=== PATIENT | male | born 1960 | race Caucasian/White ===

== ENCOUNTER 2021-01-01 10:18 | Outpatient (CLI) | payer MEDICARE, SELFPAY ==
--- NOTE | ~2021-01-01 | CT_ITS ---
EXAMINATION:CT diagnostic chest wo con DATE: 01/01/2021 10:37 INDICATION: Lung nodules. TECHNIQUE: Computed tomography (CT) of the chest was performed without intravenous contrast. Automate d exposure control and iterative reconstruction technique were employed. The dose-length product (DLP ) was 88.21 mGy-cm. COMPARISON: PET/CT 08/07/2018 FINDINGS: There is moderate emphysema. In superior segment right lower lobe, there is a 3.0 x 0.5 x 1 .5 cm mass, stable from 08/07/2018, likely scarring. Calcified bilateral lung nodules and calcified l eft hilar lymph nodes are consistent with old granulomatous disease. There is a stable 4 mm nodule in right middle lobe. There is a 2 mm nodule in right middle lobe. There is a 3 mm nodule in left upper lobe. No pleural effusion. The heart size is normal. There are coronary artery calcifications. No pe ricardial effusion. 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 Calcifications in the sp sarah are consistent with old granulomatous disease. There are epidural electrodes in thoracic spine. There is mild thoracic spondylosis. There is developmental anterior and posterior fusion at T3-T4. IMPRESSION: 1. Stable lung findings, likely benign. 2. Moderate emphysema. Reviewed, dictated and finalized at location B.
== END 2021-01-01 10:19 | disposition home or self-care (01) ==
PROVIDERS: PCP Family Medicine; Visit Provider Family Medicine
DX: R91.8 Other nonspecific abnormal finding of lung field (principal); J43.9 Emphysema, unspecified
CPT/HCPCS: 71250

== ENCOUNTER 2024-06-05 08:30 | Outpatient (CLI) | payer MEDICARE, SELFPAY ==
--- NOTE | ~2024-06-05 | XR_ITS ---
3 VIEWS THORACIC SPINE Ordering provider: Max Yusuf MD History: . RADICULOPATHY, CER LUMB AND THOR REGION . Comparison: None. FINDINGS: Spinal stimulator is seen with the tip in the midthoracic area. VERTEBRAL BODIES: Normal height and alignment. No visible fracture or subluxation. Degenerative ferro es of the spine. DISK SPACES: Narrowing at multiple levels in the lower thoracic area. SOFT TISSUES: Normal. IMPRESSION: No acute osseous abnormality of the thoracic spine. Multilevel degenerative disc disease. Reviewed, dictated and finalized at location A.
--- NOTE | ~2024-06-05 | XR_ITS ---
3 VIEWS LUMBAR SPINE Ordering provider: Max Yusuf MD History: . RADICULOPATHY, CER LUMB AND THOR REGION . Comparison: None. FINDINGS: VERTEBRAL BODIES:Mild levoscoliosis. No popliteal fracture or subluxation. Degenerative changes of s pine. Stimulator is seen in the right paraspinal area. DISK SPACES: Narrowing of the disc L1-2, and L2-3. Disc spacers seen at the level of L5-S1. Multileve l facet joint disease. SOFT TISSUES: Aortic calcifications. Bilateral sacroiliacs. IMPRESSION: No acute osseous abnormality lumbar spine. Multilevel degenerative and facet joint disease. Reviewed, dictated and finalized at location A.
--- NOTE | ~2024-06-05 | XR_ITS ---
XR cervical spine 4-5V Ordering provider: Max Yusuf MD History: . RADICULOPATHY, CER LUMB AND THOR REGION . Comparison: None. FINDINGS: VERTEBRAL BODIES: Normal height and alignment. No visible fracture or subluxation. The dens is intact . DISK SPACES: Narrowing of the disc C6-C7. Multilevel uncovertebral joint osteoarthritic lesions. Mult ilevel facet joint disease. PARASPINOUS SOFT TISSUES: No prevertebral soft tissue swelling. IMPRESSION: No acute osseous abnormality cervical spine. Degenerative disc disease at the level of C6-C7. Multilevel facet joint disease and uncovertebral joint degenerative changes. Reviewed, dictated and finalized at location A.
== END 2024-06-05 08:31 | disposition home or self-care (01) ==
PROVIDERS: PCP Family Medicine; Visit Provider Pain Medicine Interventional Pain Medicine
DX: M50.323 Other cervical disc degeneration at C6-C7 level (principal); M47.892 Other spondylosis, cervical region; M51.34 Other intervertebral disc degeneration, thoracic region; M51.36 Other intervertebral disc degeneration, lumbar region; M47.896 Other spondylosis, lumbar region; M47.897 Other spondylosis, lumbosacral region
CPT/HCPCS: 72050; 72072; 72100

== ENCOUNTER 2024-11-27 23:35 | Emergency (ER) | payer MEDICARE, SELFPAY ==
--- NOTE | ~2024-11-27 | CT_ITS ---
CT ANGIOGRAM NECK AND HEAD History: Dizziness, double vision. Technique: Serial spiral axial images through the head and neck were obtained during arterial phase I V injection of 100 cc of Omnipaque 350. 3-D postprocessing and MIP images were then reconstructed on the remote workstation. Dose reduction technique was used on this scan by utilizing automated exposur e control and iterative reconstruction technique. The dose-length product (DLP) was 1119.48 mGy-cm. CTA neck findings: Right vertebral artery appears to be patent, but diffusely hypoplastic. There is occlusion at the origin of the left vertebral artery. There is partial reconstitution of the mid cerv ical left vertebral artery. The distal left vertebral artery is also largely unopacified/occluded. Bi lateral common carotid, internal carotid, and external carotid arteries are patent. Calcified and soft plaque at the proximal right internal carotid artery results in moderate stenosis, probably 50% in degree. Possible intraluminal floating plaque at the proximal left internal carotid artery. Calcified plaque at the proximal left internal carotid artery is present, without significant stenosis. The proximal right internal carotid artery demonstrates 50% stenosis relative to the kaushal l distal artery lumen diameter. The proximal left internal carotid artery demonstrates 0% stenosis re lative to the normal distal artery lumen diameter. Incidental note made of high-grade stenosis at the proximal left subclavian artery, 90% in degree. Lung apices demonstrate moderate emphysema and probable mild chronic interstitial change. CTA head findings: Basilar artery and posterior sugars are patent. There are atherosclerotic calcific ations of the cavernous portions of the distal internal carotid arteries with areas of moderate to hi gh-grade stenosis. Middle cerebral arteries and anterior cerebral arteries are patent, without stenos is or occlusion. No aneurysm evident. Impression: Moderate stenosis (50%) at the proximal right internal carotid artery with possible floating plaque. 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 Hypoplastic right vertebral artery. Atherosclerotic calcification the cavernous portions of the distal internal carotid arteries with are as of moderate to high-grade stenosis. High-grade stenosis at the proximal left subclavian artery, as detailed above. Reviewed, dictated and finalized at location . Impression: Moderate stenosis (50%) at the proximal right internal carotid artery with poss ible floating plaque. 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 Hypoplastic right vertebral artery. Atherosclerotic calcification the cavernous portions of the distal internal car otid arteries with areas of moderate to high-grade stenosis. High-grade stenosis at the proximal left subclavian artery, as detailed above.
--- NOTE | ~2024-11-27 | XR_ITS ---
Portable chest x-ray Comparison: 10/01/2004 Clinical History: Dizziness Findings: Calcified left apical granuloma present. Lungs are otherwise clear, without focal consolida tion or pleural effusion. Cardiomediastinal silhouette is stable. Bones and soft tissues are unremar kable. Impression: No acute abnormality. Reviewed, dictated and finalized at [facility]. Impression: No acute abnormality.
--- NOTE | ~2024-11-27 | CT_ITS ---
History: CODE STROKE PROCEDURE: CT head without contrast. COMPARISON: None TECHNIQUE: Axial imaging of the head performed from the skull base to the vertex without IV contrast. Sagittal a nd coronal reformations obtained. DLP: 681 mGy-cm FINDINGS: The ventricles are normal in size, shape and position. There is no mass, mass effect or midline shift. There is no abnormal extra-axial fluid collection or intracranial hemorrhage. Visualized paranasal sinuses are clear. The mastoid air cells are well aerated. No acute displaced fractures within the overlying cranium. Impression: No acute intracranial hemorrhage or suspicious mass effect. These findings were given to Dr Arguelles at 11:57pm on 11/27/24 Reviewed, dictated and finalized at location A. Impression: No acute intracranial hemorrhage or suspicious mass effect. These findings were given to Dr Arguelles at 11:57pm on 11/27/24
--- OUTSIDE RECORDS SUMMARY | 2024-11-27 23:40 | XMS_ITS | Clinical Summary ---
Author Organization [facility] Address [address] [place] [address] Phone Care Team Providers Care Stabber Name Role Phone [facility], External Provider Primary Care Provider U navailable Allergies Active Allergy Reactions Criticality Noted Date Comments Codeine Nausea and Vomiting 05/01/2013 Medications rosuvastatin (CRESTOR) 20 mg tablet Take 20 mg by mouth daily at bedtime . Active FENOFIBRATE ORAL Take 160 mg by mouth daily . Active duloxetine HCl (CYMBALTA ORAL) Take by mouth daily. Active traMADol (ULTRAM) 50 mg tablet Take 1 Tablet (50 mg) by mouth every 6 hours as needed for Pain. 40 Tablet 07/06/2018 Active varenicline tartrate (CHANTIX ORAL) Take by mouth. Active oxyCODONE-acetam inophen (PERCOCET) 7.5-325 mg TabletIndication s:Erectile dysfunction, unspecified erectile dysfunction type Take 1 Tablet by mouth every 4 hours as needed for Pain, Moderate. Max Daily Amount: 6 Tablets 28 Tablet 05/10/2019 4:04 PM CDT 05/10/2019 Active amoxicillin-clav ulanate (AUGMENTIN) 875-125 mg tablet Take 1 Tablet by mouth every 12 hours. 10 Tablet 05/10/2019 4:04 PM CDT 05/10/2019 Active Active Problems Problem Noted Date Diagnosed Date Erectile dysfunction 03/19/2018 Erectile disorder due to medical condition in ma le patient 04/12/2017 Tobacco use 02/17/2017 Cigarette dependence 02/17/2017 Social History Tobacco Use Types Packs/Day Years Used Date Smoking Tobacco: Every Day Cigarettes 1 41 Started: 03/01/1977; Last attempted to quit: 03/01/2018 Smokeless Tobacco: Never Comments:using chantix Alcohol Use Standard Drinks/Week Comments Yes 0 (1 standard drink = 0.6 oz pur e alcohol) occassional Sex and Gender Information Value Date Recorded Sex Assigned at Not on file Legal Sex Male 4:[address] Gender Identity Not on file Sexual Orientation Not on file Last Filed Vital Signs Vital Sign Reading Time Taken Comments Blood Pressure 142/68 05/10/2019 4:02 PM CDT Pulse 62 05/10/2019 4:02 PM CDT Temperature 35.7 C (96.3 F) 05/10/2019 3:28 PM CDT Respiratory Rate 14 05/10/2019 4:02 PM CDT Oxygen Saturation 100% 05/10/2019 4:02 PM CDT Inhaled Oxygen Concentration - - Weight 66.2 kg (146 lb) 05/10/2019 10:21 AM CDT Height 167.6 cm (5' 6 ) 05/06/2019 12:28 PM CDT Body Mass Index 23.57 05/06/2019 12:28 PM CDT Plan of Treatment Health Maintenance Due Date Last Done Comments PNEUMOCOCCAL VACCINE 0-49 YEARS (1 of 2 - PCV) 969 COLORECTAL SCREENING 11/17/2007 Colorectal Cancer Screening 11/17/2007 FIT-DNA Q 3 years 11/17/2007 FIT/FOBT Q 1 year 11/17/2007 Flex Sig/CT Colonography Q 5 years 11/17/2007 ZOSTER VACCINE (1 of 2) 2012 RSV VACCINE (60+ or ) (1 - Risk 60-74 years 1-dose series) 2022 INFLUENZA VACCINE (#1) 2024 DTAP/TDAP/TD VACCINES (2 - Td or Tdap) 05/15/2028 Medical Devices Implanted Type Area Kennel Assistant Device Identifier Shelf Expiration Date Model / Serial / Lot Kit Assemly Penile Impl [id number] - [id number] Implanted:Qty: 1 on 02/22/2017 by Margot Wright MD at [facility] Other N/A: Scrotum COLOPLAST [id number] 10/27/2021 [id number] / / [id number] Kit Assemly Penile Impl [id number] - [id number] Implanted:Qty: 1 on 03/19/2018 by Abel Merida MD at [facility] Other N/A: Penis COLOPLAST UROLOGY CARE 12/03/2022 [id number] / / Description:Both Coloplast p enile components are processed on requisition [id number] Kit Assemly Penile Impl [id number] - [id number] Implanted:Qty: 1 on 07/06/2018 by Abel Merida MD at [facility] Other N/A: Groin COLOPLAST UROLOGY CARE 02/22/2023 [id number] / / [id number] Description:REQUISITION $ 82 [id number]. Kit Assemly Penile Impl [id number] - [id number] Implanted:Qty: 1 on 05/10/2019 by Abel Merida MD at [facility] Other N/A: Penis COLOPLAST UROLOGY CARE 12/21/2023 [id number] / / [id number] Touch Scrotal Zero Degree Angle Cylinder Set With Pump Implanted:Qty: 1 on 02/22/2017 by Margot Wright MD at [facility] Penile Bilateral: Penis COLOPLAST [id number] 12/28/2020 [id number] / / [id number] Description:All Coloplast pe nile components are processed on requisition,[id number]. [place] Titan [place] Leav 125cc [id number] - [id number] Implanted:Qty: 1 on 03/19/2018 by Abel Merida MD at [facility] Penile N/A: Penis COLOPLAST UROLOGY CARE 06/29/2022 [id number] / / [id number] Description:REQUISITION# [id number] Titan Touch Pump Implanted:Qty: 1 on 05/10/2019 by Abel Merida MD at [facility] Penile N/A: Penis COLOPLAST 09/28/2023 [id number] / / [id number] Description:REF: [id number] BOTH COLOPLAST COMPONETS ON REQUISITION # [id number] Heath Right Leg Spinal Stimulator Explanted Type Area Kennel Assistant Device Identifier Shelf Expiration Date Model / Serial / Lot [place] Titan [place] Leav 125cc [id number] - [id number] Implanted:Qty: 1 on 02/22/2017 by Margot Wright MD at [facility] Explanted:Qty: 1 on 03/19/2018 by Abel Merida MD at [facility] Penile N/A: Scrotum COLOPLAST [id number] 10/03/2021 [id number] / / [id number] Description:[place] remove d on left Penile Cylinder And Pump Explanted:Qty: 1 on 02/22/2017 by Margot Wright MD at [facility] N/A: Penis Ams Explanted:Qty: 1 on 03/19/2018 by Abel Merida MD at [facility] Right: Penis [employer] Description:unknown date of implantation or further information. [place] removed on right Insurance MEDICARE PART A AND B RX [employer] Medicare Part D Advance Directives For more information, please contact: [phone] * Full Code (Latest Code Status on File) Date Activated Date Inactivated Comments 05/10/2019 10:19 AM 05/10/2019 6:34 PM * Full Code Date Activated Date Inactivated Comments 07/06/2018 2:50 PM 07/06/2018 8:58 PM * Full Code Date Activated Date Inactivated Comments 07/06/2018 12:25 PM 07/06/2018 2:50 PM * Full Code Date Activated Date Inactivated Comments 03/19/2018 8:47 AM 03/19/2018 5:12 PM * Full Code Date Activated Date Inactivated Comments 04/12/2017 9:10 AM 04/12/2017 3:54 PM Care Teams Stabber Relationship Specialty Start Date End Date [facility], External Provider [address] [place] [address] PCP - General 02/16/17
--- OUTSIDE RECORDS SUMMARY | 2024-11-27 23:40 | XMS_ITS | Clinical Summary ---
Author Organization [facility] Address [address] [place] [address] Care Team Providers Care Salesperson Burial Needs Name Role Phone Unavailable Primary Care Provider Unavailabl e Source Comments [facility],non-owned Affiliates and Associated Physician Practices is amultiple site organization consisting of ambulatory clinics and hospital sitesin [place], [place], [place] and [place]. This disclosure is being madepursuant to the Care Everywhere program and may not contain all information available regarding this patient. Last updated 18.[facility] Allergies Active Allergy Reactions Criticality Noted Date Comments Codeine Elevated Blood Pressure 09/23/2009 Medications * Be aware that medications may not be up to date on this document. Alwaysverify current medications with the patient. Medication Sig Dispensed Refills Start Date End Date Status esomeprazole (NEXIUM) 40 MG capsule Take 40 mg by mouth daily before breakfast. Active rosuvastatin (CRESTOR) 10 MG tablet Take 10 mg by mouth daily. Active hydrocodone-acetaminop hen (VICODIN ES) 7.5-750 MG tablet Take 1 Tab by mouth every 4 hours as needed for Pain. Active fenofibrate (TRICOR) 145 MG tablet Take 145 mg by mouth daily. Active mirtazapine (REMERON) 15 MG tablet Take 1 Tab by mouth at bedtime. 30 0 01/07/2010 Active duloxetine (CYMBALTA) 30 MG capsule Take 1 Cap by mouth daily. 30 0 01/07/2010 Active Family History Medical History Relation Name Comments Depression Brother Heart Failure Father Depression Mother Heart Failure Paternal Grandmother Heart Failure Paternal Uncle Relation Name Status Comments Brother Father Mother Paternal Grandmother Paternal Uncle Social History Tobacco Use Types Packs/Day Years Used Date Smoking Tobacco: Every Day Cigarettes 1 30 Alcohol Use Standard Drinks/Week Comments Yes 10 (1 standard drink = 0.6 oz pu re alcohol) 1 TO 2 TIMES/ MONTH Sex and Gender Information Value Date Recorded Sex Assigned at Not on file Gender Identity Not on file Sexual Orientation Not on file Last Filed Vital Signs Vital Sign Reading Time Taken Comments Blood Pressure 138/100 01/07/2010 10:27 AM CDT Pulse 82 01/07/2010 10:27 AM CDT Temperature 36.9 C (98.5 F) 01/07/2010 10:27 AM CDT Respiratory Rate 20 01/07/2010 10:27 AM CDT Oxygen Saturation 99% 01/04/2010 10:56 AM CDT Inhaled Oxygen Concentration - - Weight 69.9 kg (154 lb) 01/07/2010 7:57 AM CDT Height 170.2 cm (5' 7 ) 01/04/2010 2:00 PM CDT Body Mass Index 24.12 01/04/2010 2:00 PM CDT Plan of Treatment Not on file Advance Directives * Full Code (Latest Code Status on File) Date Activated Date Inactivated Comments 01/04/2010 4:16 PM 01/08/2010 12:06 AM * Full Code Date Activated Date Inactivated Comments 01/04/2010 2:14 PM 01/04/2010 4:16 PM
--- OUTSIDE RECORDS SUMMARY | 2024-11-27 23:40 | XMS_ITS | Clinical Summary ---
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 Gender Identity Not on file Sexual Orientation Not on file Plan of Treatment Health Maintenance Due Date Last Done Comments Hepatitis C Virus (HCV) Screening 1960 TdaP Immunization 1960 Colonoscopy 11/17/2007 Colorectal Cancer Screening 11/17/2007 Cologuard 2012 Immunochemical Fecal Occult Blood 2012 Pneumococcal Immunization (5 0+ years) (1 of 1 - PCV) 2012 Zoster Immunization (1 of 2) 2012 PSA Discussion 2017 Influenza Immunization (#1) 2024 SARS-COV-2 Immunization ( - 2023-25 season) 2024 Respiratory Syncytial Virus (RSV) Immunization (Adult) (1 - 1-dose 75+ series) 2037 Hepatitis B Immunization Aged Out No longer eligible based on patient's age to complete this topic Meningococcal Immunization (ACWY) Aged Out No longer eligible based on patient's age to complete this topic Pneumococcal Immunization Combined Aged Out No longer eligible based on patient's age to complete this topic Rotavirus Immunization Aged Out No lo nger eligible based on patient's age to complete this topic Care Teams Logistics Program Manager Relationship Specialty Start Date End Date Provider, None [place] PCP - General 11/02/16
--- OUTSIDE RECORDS SUMMARY | 2024-11-27 23:40 | XMS_ITS | Data Portability ---
Author Organization [place] - [facility], Main Office Address [address] [place] [address] Assessment No assessment recorded. Plan of Treatment Reminders Order Date Submit Date Provider Last Modified By Organization Details Last Modified Time Details Appointments Any 2024 10:15A Katrin Mcnulty NP Not available Not available Not available Lab vitamin D, 25-hydrox y, total, serum [address] [place] [address] (Lab), [address] [place] [address], [address], 10/01/2024 08:25:33 lipid panel, serum [address] [place] [address] (Lab), [address] [place] [address], [address], 10/22/2024 08:17:23 hepatic function panel, serum [address] [place] [address] (Lab), [address] [place] [address] [address], [place], [address], 10/01/2024 08:25:33 CMP, serum or plasma [address] [place] [address] (Lab), [address] [place] [address] [address], [place], [address], 10/01/2024 08:25:33 PSA, serum or plasma [address] [place] [address] (Lab), [address] [place] [address] [address], [address], 10/01/2024 08:25:33 CBC w/ auto diff 2024 025 [email or web address] 77 [facility] (Lab), [address], [place], [address], 10/01/2024 08:25:33 HbA1c (hemoglob in A1c), blood 2024 025 [email or web address] 77 [facility] (Lab), [address], [place], [address], 10/01/2024 08:25:33 drug screen, urine 2023 024 [facility], [address], [address], [place], [address], 02/17/2024 18:18:11 PSA, total, serum or plasma 2022 023 77 [facility] (Lab), [address], [place], [address], 05/31/2023 08:31:51 lipid panel, serum 2022 023 [email or web address] [id number] Not available 09/12/2023 09:16:36 Referral gastroent erologist referral - Please call patient to schedule an appointme nt. Thank you. 2024 025 [email or web address] Pat Cobb MD, [address], [address], [place], [address], 10/21/2024 09:02:44 dermatolo gist referral - Please call patient to schedule an appointme nt. Thank you. 2023 024 [email or web address] Cailin Cornejo MD (Dermatology) , [address], [address], [place], [address], 07/04/2024 10:26:09 pain managemen t referral - Please call patient to schedule an appointme nt. Thank you. 2023 024 [email or web address] Max Yusuf, [address] [facility] [address] , [address], [place], [address], 03/25/2024 08:46:56 gastroent erologist referral - Please call patient to schedule an appointme nt. Thank you. 2023 024 [email or web address] Pat Cobb MD, [address], [address], [place], [address], 01/08/2024 08:57:28 Procedures None recorded. Surgeries None recorded. Imaging None recorded. Medication Orders rosuvasta tin 10 mg tablet 2024 025 [id number], [address], [place], [address], 09/23/2024 12:20:43 fluoxetin e 40 mg capsule 2024 025 [id number], [address], [place], [address], 09/23/2024 12:20:41 Rexulti 2 mg tablet 2024 025 [id number], [address], [place], [address], 09/23/2024 12:20:42 triamcino lone acetonide 0.1 % topical cream 2023 024 [facility]/Pharmacy #[id number], [address], [place], [address], 09/23/2024 12:08:33 oxycodone -acetamin ophen 10 mg-325 mg tablet 2023 024 [facility]/Pharmacy #[id number], [address], [place], [address], 09/23/2024 12:08:14 pantopraz ole 40 mg tablet,de layed release 2023 024 [email or web address] [facility]/Pharmacy #[id number], [address], [place], [address], 09/23/2024 12:08:19 Patient TargetsNo targets recorded. Patient Instructions Encounter Date Encounter Id Patient Instructions Last Modified By Organization Details Last Modified Time 02/13/2024 [id number] Personalized Hea lth Plan and Screening Recommendations [email or web address] Not available 02/13/2024 11:44:27 09/23/2024 [id number] dementia rating scale-2* MAUREEN Not available 09/23/2024 12:28:12 care plan* MAUREEN Not available 09/23 12:28:07 multi-dimensiona l health assessment questionnaire* MAUREEN Not available 09/23/2024 12:27:59 advance directiv es: care instructions [email or web address] Not available 09/23/2024 12:20:35 [place] Advance Directives [email or web address] Not available 09/23/2024 12:20:34 advance care planning: care instructions [email or web address] Not available 09/23/2024 12:20:34 Personalized Hea lth Plan and Screening Recommendations Advance Directives - Do you have one? Advance Directives - Do we have your advance directive on file in your health record? Primary Prevention/Interven tion (prevents or decreases the chance of common diseases from occurring) Smoking Risk: Alcohol Misuse Screening: Weight: Physical activity: Nutrition: Fall Risk (screened today): Vaccines Pneumococcal: Influenza: Chronic Disease Risks Stroke: I have no recommendations Active diagnosis, Continue current treatment plan Heart Attack: I have no recommendations Act radha diagnosis, Continue current treatment plan Clogging of the Arteries: I have no recommendations Act radha diagnosis, Continue current treatment plan Diabetes: Active diagnosis, Continue current treatment plan Secondary Prevention/Interven tion (detects treatable diseases before they may cause symptoms, disability, or ) Prostate Cancer Screening: Colon Cancer Screening: Date Screening Last Performed: Eye Disease Screening: Dementia Risk: Depression Screening: Active diagnosis, Continue current treatment plan [email or web address] Not available 09/23/2024 12:05:39 Reason for Referral After School Program Assistant Referral for Gracia's esophagus Please call patient to schedule an appointment. Thank you. Referring Physician: Shanae Jung, Family Medicine, Encounter Date: 12/11/2023 Pain Management Referral for Degeneration of lumbar intervertebral disc lumbar pain, pain medication management Please call patient to schedule an appointment. Thank you. Referring Physician: Yaya Woodall [facility], Encounter Date: 02/13/2024 Laser Engineer Referral for H yperpigmentation of skin lesion noted to left LFA, rule out melanoma Please call patient to schedule an appointment. Thank you. Referring Physician: Yaya Woodall [facility], Encounter Date: 06/06/2024 After School Program Assistant Referral for Screening for malignant neoplasm of colon Please call patient to schedule an appointment. Thank you. Referring Physician: Urszula Mcnulty [facility], Encounter Date: 09/23/2024 Results Created Date Observation Date Name Description Value Unit Range Abnormal Flag Note LastModifiedBy Organization Detail LastModifiedTime 02/17/20 24 02/17/2024 DRUG MONIT OR, PANEL 3, W/CON F, URINE amphetamines NEGATI VE NG/mL <500 Not Available [place] [address] [place], [address], 02/17/2024 18:18:11 02/17/20 24 02/17/2024 DRUG MONIT OR, PANEL 3, W/CON F, URINE benzodiazepi sundar NEGATI VE NG/mL <100 Not Available [address] [address] [place], [address], 02/17/2024 18:18:11 02/17/20 24 02/17/2024 DRUG MONIT OR, PANEL 3, W/CON F, URINE cocaine metabolite NEGATI VE NG/mL <150 Not Available [facility] [address] [place] [address] [place], [address], 02/17/2024 18:18:11 02/17/20 24 02/17/2024 DRUG MONIT OR, PANEL 3, W/CON F, URINE marijuana metabolite POSITI VE NG/mL <20 abnormal Not Available [facility] [address] [place] [address] [place], [address], 02/17/2024 18:18:11 02/17/20 24 02/17/2024 DRUG MONIT OR, PANEL 3, W/CON F, URINE marijuana metabolite 3165 NG/mL <5 high Not Available [address], [address], 02/17/2024 18:18:11 02/17/20 24 02/17/2024 DRUG MONIT OR, PANEL 3, W/CON F, URINE marijuana comments See Duane andrews Notes , LDT Notes Not Available [address] [address] [address] , [place], [address], 02/17/2024 18:18:11 02/17/20 24 02/17/2024 DRUG MONIT OR, PANEL 3, W/CON F, URINE opiates NEGATI VE NG/mL <100 Not Available [address], [address], 02/17/2024 18:18:11 02/17/20 24 02/17/2024 DRUG MONIT OR, PANEL 3, W/CON F, URINE oxycodone NEGATI VE NG/mL <100 Not Available [address], [address], 02/17/2024 18:18:11 02/17/20 24 02/17/2024 DRUG MONIT OR, PANEL 3, W/CON F, URINE creatinine 75.7 mg/dL > or = 20.0 Not Available [address] [address] [place], [address], 02/17/2024 18:18:11 02/17/20 24 02/17/2024 DRUG MONIT OR, PANEL 3, W/CON F, URINE pH 7.3 4.5-9. 0 Not Available [address] [address] [place], [address], 02/17/2024 18:18:11 02/17/20 24 02/17/2024 DRUG MONIT OR, PANEL 3, W/CON F, URINE oxidant NEGATI VE mcg/m L <200 Not Available [facility] [address] [address] [address], [place], [address], 02/17/2024 18:18:11 02/17/2002/17/2024 DRUG MONIT ORING TEMPL ATE notes and comments This drug testi ng is for medic al treat ment only. Audra sis was perfo rmed as non-f orens ic testi ng and these resul ts shoul d be used only by [facility] provi ders to rende r diagn osis or treat ment, or to monit or progr ess of medic al condi tions . Marij uana Notes : Marij uana Metab olite detec chris is consi stent with expos ure to Marij uana (THC) and/o r hemp deriv ed produ cts. Some juris dicti ons do not inclu de hemp withi n the defin ition of Marij uana. LDT Notes : Confi rmati on tests were devel oped and their audra tical perfo rmanc e miladys cteri stics have been deter mined by [facility]. It has not been clear ed or appro wang by the FDA. This assay has been valid ated pursu ant to the CLIA regul ation s and is used for clini carlee purpo ses. [facility] Provi ders needi ng Inter preta tion tanya tance , pleas e conta ct us at 1.877 .40.R XTOX (1.87 7.407 .9869 ) M-F, 8am to 10pm EST Not Available [facility] [address] [address] [address], [place], [address], 02/17/2024 18:18:13 02/17/2002/17/2024 DRUG MONIT OR, PANEL 3, W/CON F, URINE amphetamines NEGATI VE NG/mL <500 Not Available [facility] [address] [address], [place], [address], 02/17/2024 18:19:14 02/17/2002/17/2024 DRUG MONIT OR, PANEL 3, W/CON F, URINE benzodiazepi sundar NEGATI VE NG/mL <100 Not Available [address] [address] [place], [address], 02/17/2024 18:19:14 02/17/20 24 02/17/2024 DRUG MONIT OR, PANEL 3, W/CON F, URINE cocaine metabolite NEGATI VE NG/mL <150 Not Available [address] [address] [place], [address], 02/17/2024 18:19:14 02/17/20 24 02/17/2024 DRUG MONIT OR, PANEL 3, W/CON F, URINE marijuana metabolite POSITI VE NG/mL <20 abnormal Not Available [address] [address] [place], [address], 02/17/2024 18:19:14 02/17/20 24 02/17/2024 DRUG MONIT OR, PANEL 3, W/CON F, URINE marijuana metabolite 3165 NG/mL <5 high Not Available [address], [address], 02/17/2024 18:19:14 02/17/20 24 02/17/2024 DRUG MONIT OR, PANEL 3, W/CON F, URINE marijuana comments See Duane andrews Notes , LDT Notes Not Available [address] [address] [place], [address], 02/17/2024 18:19:14 02/17/20 24 02/17/2024 DRUG MONIT OR, PANEL 3, W/CON F, URINE opiates NEGATI VE NG/mL <100 Not Available [address] [address] [place], [address], 02/17/2024 18:19:14 02/17/20 24 02/17/2024 DRUG MONIT OR, PANEL 3, W/CON F, URINE oxycodone NEGATI VE NG/mL <100 Not Available [address] [address] [place], [address], 02/17/2024 18:19:14 02/17/20 24 02/17/2024 DRUG MONIT OR, PANEL 3, W/CON F, URINE creatinine 75.7 mg/dL > or = 20.0 Not Available [address] [address] [place], [address], 02/17/2024 18:19:14 02/17/20 24 02/17/2024 DRUG MONIT OR, PANEL 3, W/CON F, URINE pH 7.3 4.5-9. 0 Not Available [address] [address] [place], [address], 02/17/2024 18:19:14 02/17/20 24 02/17/2024 DRUG MONIT OR, PANEL 3, W/CON F, URINE oxidant NEGATI VE mcg/m L <200 Not Available [address] [address] [place], [address], 02/17/2024 18:19:14 06/05/20 24 06/05/2024 XR, cervi carlee spine , 4 or 5 view No observ ation record ed. [address] [facility], [place], [address], 06/12/2024 13:21:02 06/05/20 24 06/05/2024 XR, thora cic spine No observ ation record ed. [address], [place], [address], 06/12/2024 13:20:33 06/05/20 24 06/05/2024 XR, lumbo sacra l spine , 2 or 3 view No observ ation record ed. [address], [place], [address], 06/12/2024 13:20:02 Result Notes None recorded. Problems Name Problem SNOMED Code Status Onset Date Resolution Date Notes Provider Name and Address Organization Details Recorded Time Hyperchol esterolem ia 61125833 Active 2016 Not Available [facility] 3 16:15:59 Postopera tive visit 519384224 Active 2017 Not Available [facility] 3 16:15:59 Insomnia 188593159 Active Not Available [facility] 3 16:15:59 [place] - lesion 285611480 Active Not Available [facility] 3 16:15:59 Gastroeso phageal reflux disease 252188152 Active Not Available [facility] 3 16:15:59 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 Not Available [facility] 3 16:15:59 Ankle pain 073190683 Active Not Available [facility] 3 16:15:59 Pain in right lower limb 844831181 Active Not Available [facility] 3 16:15:59 Gracia's esophagus 392104600 Active EGD done 10/30 Not Available [facility] 3 16:15:59 Bronchiti s 44508611 Active Not Available [facility] 3 16:15:59 Vitamin D deficienc y 20892806 Active Not Available [facility] 3 16:15:59 Depressiv e disorder 80179180 Active Not Available [facility] 3 16:15:59 Chronic pain syndrome 030538984 Active Not Available [facility] 3 16:15:59 Hypertens radha disorder 33069929 Active Not Available [facility] 3 16:15:59 Prostate specific antigen above reference range 717787183 Active 2020 Not Available [facility] 3 16:16:00 Transitio nal cell carcinoma of kidney 032277885 Active Not Available [facility] 3 16:16:00 Bunion 126672063 Active Not Available [facility] 3 16:16:00 Solitary nodule of lung 065842433 Active Not Available [facility] 3 16:16:00 Cough 03706859 Active Not Available [facility] 3 16:16:00 Hoarse 36285636 Active Not Available [facility] 3 16:16:00 Hyperlipi demia 00329466 Active Not Available [facility] 3 16:16:00 Nicotine dependenc e 79435821 Active Not Available [facility] 3 16:16:00 Hypercalc emia 93737278 Active Not Available [facility] 3 16:16:00 Renal cell carcinoma 404427378 Active 2016 removed kind 03/15 Not Available [facility] 3 16:16:00 Smoker 22324244 Active Not Available [facility] 3 16:16:00 Hyperglyc emia 11685892 Active 2018 Not Available [facility] 3 16:16:01 Liver cyst 28377814 Active 2017 Not Available [facility] 3 16:16:01 Pulmonary emphysema 20139084 Active 2017 Not Available [facility] 3 16:16:01 Reactive airway disease 421859540847 Active Not Available [facility] 3 16:16:01 Degenerat ion of lumbar intervert ebral disc 40055047 Active 2022 Shanae Jung MD [address] [facility] [address], [place], [address] , [email or web address] 3 13:41:38 Hyperpigm entation of skin 91410254 Active 2023 GER Sahu [address] [facility] [address], [facility] [address], [place], [address] , [email or web address] 4 15:29:17 Problem Notes None recorded. Procedures Surgical History Date Name Laterality Status Provider Name and Address Organization Details Recorded Time 5 Medicare Wellness CPT Code, Initial completed Marty Cope RN [facility] 09/23/2024 12:05:40 Imaging Results Imaging Date Name Status LastModified by Organiz [facility] Details LastModified Time 06/05/2024 XR, cervical spine, 4 or 5 view completed [address], [place], [address], 06/12/2024 13:21:02 06/05/2024 XR, thoracic spine completed [address], [place], [address], 06/12/2024 13:20:33 06/05/2024 XR, lumbosacral spine, 2 or 3 view completed [place] [id number] [facility] [address], [place], [address], 06/12/2024 13:20:02 Procedure Notes None recorded. Medical Equipment None Reported. Allergies Allergen ID Allergen Name Allergen Category Reaction Reaction Severity Criticality Documentation Date Start Date Code Code System Note Provider Name and Address Organization Details Recorded Time 24334 tramadol medicatio n nausea severe Not available 11/09/2022 89253 RxNorm Not Available [facility] 3 16:18:15 [address]4024 codeine medicatio n Not available Not available Not available 11/09/2022 2670 RxNorm Not Available [facility] 3 16:18:15 Medications Name Sig Start Date Stop Date Status Note LastModified by Organization Details LastModified Time fluoxetin e 40 mg capsule 2 po qday 2024 active Not Available Not Available Not Avai lable cyclobenz aprine 10 mg tablet 09/23 completed Not Available Not Available Not Available amoxicill in 500 mg capsule 11/26 completed Not Available Not Available Not Available terbinafi ne HCl 1 % topical cream apply to both feet twice daily 10/27 completed Not Available Not Available Not Available bupropion HCl SR 150 mg tablet,12 hr sustained -release 1 po qAM active Not Available Not Available No t Available venlafaxi ne ER 75 mg capsule,e xtended release 24 hr TK ONE C PO QD WITH 150 MG DOSAGE active Not Available Not Available No t Available pravastat in 40 mg tablet Take 1 tablet every day by oral route. active Not Available Not Available No t Available hydrocodo ne 5 mg-acetam inophen 325 mg tablet TAKE 1 TABLET EVERY 8 HOURS BY MOUTH NEEDED FOR 7 DAYS 02/26 completed Not Available Not Available Not Available ondansetr on HCl 8 mg tablet Take 1 tablet 3 times a day by oral route. active Not Available Not Available No t Available meloxicam 15 mg tablet active Not Available Not Available Not Available sucralfat e 1 gram tablet Take 1 tablet twice a day by oral route for 30 days. active Not Available Not Available No t Available ondansetr on HCl 4 mg tablet active Not Available Not Available No t Available prednison e 20 mg tablet 3 po qday x 3 days then 2 po qday x 3 days then 1 po qday x 3 days then 1/2 po qday x 3 days then stop active Not Available Not Available No t Available venlafaxi ne ER 150 mg capsule,e xtended release 24 hr TK ONE C PO QD WITH 75 MG C active Not Available Not Available No t Available metronida zole 500 mg tablet 04/17 completed Not Available Not Available Not Available acetamino phen 300 mg-codein e 30 mg tablet 12/16 completed Not Available Not Available Not Available hydrocodo ne 10 mg-acetam inophen 325 mg tablet Take 1 tablet every 6 hours by oral route as needed. 09/12 completed Not Available Not Available Not Available omeprazol e 40 mg capsule,d elayed release TAKE ONE CAPSULE BY MOUTH ONCE DAILY 12/16 completed Not Available Not Available Not Available tramadol 50 mg tablet TK 1 T PO TID PRN 06/13 completed Not Available Not Available Not Available triamcino lone acetonide 0.1 % topical cream APPLY A THIN LAYER TO THE AFFECTED AREA(S) BY TOPICAL ROUTE 2 TIMES PER DAY 09/23 completed Not Available Not Available Not Available ketorolac 30 mg/mL (1 mL) injection solution Inject 30 mg every day by intramus cular route for 1 day. 04/02 completed Not Available Not Available Not Available amoxicill in 500 mg tablet TAKE 1 TABLET BY MOUTH EVERY 8 HOURS 07/27 completed Not Available Not Available Not Available oxycodone -acetamin ophen 5 mg-325 mg tablet Take 1 tablet every 8 hours by oral route as needed for 5 days. 10/10 completed Not Available Not Available Not Available methocarb ralph 750 mg tablet TK 1 T PO BID active Not Available Not Available No t Available pravastat in 10 mg tablet Take 1 tablet every day by oral route as directed for 90 days. active Not Available Not Available No t Available oxycodone -acetamin ophen 10 mg-325 mg tablet TAKE 1 TABLET BY MOUTH EVERY 8 HOURS NEEDED 09/23 completed Not Available Not Available Not Available dicyclomi ne 20 mg tablet 1 po q6 hours prn abd pain active Not Available Not Available No t Available hydrocodo ne 7.5 mg-acetam inophen 325 mg tablet TK 1 T PO TID PRN FOR 14 DAYS active Not Available Not Available No t Available cephalexi n 500 mg capsule 04/17 completed Not Available Not Available Not Available paroxetin e 20 mg tablet TAKE ONE TABLET BY MOUTH ONCE DAILY active Not Available Not Available No t Available pantopraz ole 40 mg tablet,de layed release Take 1 tablet every day by oral route. 09/23 completed Not Available Not Available Not Available mirtazapi ne 30 mg tablet TK 1 T PO QD UTD 03/29 completed Not Available Not Available Not Available fluoxetin e 20 mg tablet Take 1 tablet every day by oral route as directed for 90 days. active Not Available Not Available No t Available buspirone 10 mg tablet Take 1 tablet 3 times a day by oral route for 30 days. 04/17 completed Not Available Not Available Not Available hydrochlo rothiazid e 12.5 mg capsule Take 1 capsule every day by oral route. active DR. SHAHNAZ BASS PER PT Not Available Not Available Not Available gabapenti n 300 mg capsule TAKE 2 CAPSULES BY MOUTH TWICE DAILY 03/29 completed Not Available Not Available Not Available omeprazol e 20 mg capsule,d elayed release Take 1 capsule every day by oral route. active Not Available Not Available No t Available mirtazapi ne 45 mg tablet TAKE 1 TABLET BY MOUTH EVERY DAY active Not Available Not Available No t Available diclofena c sodium 75 mg tablet,de layed release 12/16 completed Not Available Not Available Not Available pravastat in 20 mg tablet Take 2 tablets every day by oral route. active Not Available Not Available No t Available mupirocin 2 % topical ointment 04/17 completed Not Available Not Available Not Available zolpidem 5 mg tablet Take 1 tablet every day by oral route at bedtime for 30 days. active Not Available Not Available No t Available mirtazapi ne 15 mg tablet TK 1 T PO QHS active Not Available Not Available No t Available gabapenti n 100 mg capsule 08/06 completed Not Available Not Available Not Available ergocalci ferol (vitamin D2) 1,250 mcg (50,000 unit) capsule Take 1 capsule every week by oral route. active Not Available Not Available No t Available diazepam 10 mg tablet 04/17 completed Not Available Not Available Not Available oxaprozin 600 mg tablet Take 1 tablet every day by oral route as needed. 04/17 completed Not Available Not Available Not Available levofloxa julio 500 mg tablet 04/17 completed Not Available Not Available Not Available oxycodone -acetamin ophen 7.5 mg-325 mg tablet TK 1 T PO QID PRN 01/19 completed Not Available Not Available Not Available zolpidem 10 mg tablet Take 1 tablet every day by oral route for 30 days. active Not Available Not Available No t Available paroxetin e 40 mg tablet Take 1 tablet every day by oral route for 90 days. active Not Available Not Available No t Available Tricor 160 mg tablet one po daily active Not Available Not Available No t Available fluoxetin e 20 mg capsule 1 po qday with 40 mg capsule active Not Available Not Available No t Available diazepam 5 mg tablet 04/17 completed Not Available Not Available Not Available amoxicill in 875 mg-potass ium clavulana te 125 mg tablet TAKE 1 TABLET BY MOUTH TWICE DAILY 03/29 completed Not Available Not Available Not Available Ventolin HFA 90 mcg/actua tion aerosol inhaler Inhale 2 puffs every 4 hours by inhalati on route as needed. active Not Available Not Available No t Available Cough Syrup 100 mg/5 mL oral liquid Take 10 mL every 4 hours by oral route as needed. active Not Available Not Available No t Available aripipraz ole 10 mg tablet TK 1 T PO QD active Not Available Not Available No t Available aripipraz ole 15 mg tablet TK 1 T PO QD 11/05 completed Not Available Not Available Not Available aripipraz ole 20 mg tablet Take 1 tablet every day by oral route. active Not Available Not Available No t Available aripipraz ole 5 mg tablet TK 1 T PO QD active Not Available Not Available No t Available rosuvasta tin 10 mg tablet TAKE 1 TABLET BY MOUTH DAILY 2024 active Not Available Not Available Not Avai lable rosuvasta tin 20 mg tablet Take 1 tablet every day by oral route. 12/22 completed Not Available Not Available Not Available duloxetin e 60 mg capsule,d elayed release Take 1 capsule twice a day by oral route for 90 days. active Not Available Not Available No t Available fenofibra te 160 mg tablet Take 1 tablet every day by oral route. active Not Available Not Available No t Available mirtazapi ne 40 MG TAKE 1 TABLET PO DAILY 2013 active Not Available Not Available Not Avai lable Chantix 1 mg tablet TAKE 1 TABLET BY MOUTH TWICE DAILY 08/25 completed Not Available Not Available Not Available fenofibra te nanocryst allized 145 mg tablet TAKE ONE TABLET BY MOUTH ONCE DAILY 12/16 completed Not Available Not Available Not Available oxycodone 10 mg tablet active Not Available Not Available Not Available venlafaxi ne ER 225 mg tablet,ex tended release 24 hr TAKE 1 TABLET BY MOUTH EVERY DAY active Not Available Not Available No t Available Chantix Starting Month Box 0.5 mg (11)-1 mg (42) tablets in dose pack TK UTD PER PACKAGE INSTRUCT IONS 08/25 completed Not Available Not Available Not Available marijuana (cannabis ) Medical marijuan a 2018 active Not Available Not Available Not Avai lable Rexulti 0.5 mg tablet starter pack dispense d 07/27 completed Not Available Not Available Not Available Rexulti 2 mg tablet TAKE 1 TABLET BY MOUTH EVERY DAY 2024 active Not Available Not Available Not Avai lable Vraylar 1.5 mg capsule Take 1 capsule every day by oral route for 30 days. 09/12 completed Not Available Not Available Not Available Vitals Date Recorded Body height Body mass index (BMI) Body weight Body temperature Heart rate Oxygen saturation Oxygen saturation in Arterial blood by Pulse oximetry Systolic blood pressure Diastolic blood pressure Provider Name and Address Organization Details Last Updated DateTime 3 171.45 cm 26.7 kg/m2 50511.4 8 g 97.6 [degF] 76 /min 96 % 96 % 158 mm[Hg] 80 mm[Hg] Marty Cope RN [place] [employer] 3 12:10:19 Date Recorded Body height Body mass index (BMI) Body weight Body temperature Heart rate Oxygen saturation Oxygen saturation in Arterial blood by Pulse oximetry Systolic blood pressure Diastolic blood pressure Provider Name and Address Organization Details Last Updated DateTime 4 171.45 cm 26.4 kg/m2 63907.3 g 98.1 [degF] 74 /min 96 % 96 % 132 mm[Hg] 84 mm[Hg] Marty Cope RN [facility] [employer] [facility] 4 09:20:38 Date Recorded Body height Body mass index (BMI) Body weight Body temperature Heart rate Oxygen saturation Oxygen saturation in Arterial blood by Pulse oximetry Systolic blood pressure Diastolic blood pressure Provider Name and Address Organization Details Last Updated DateTime 4 171.45 cm 25.5 kg/m2 33482.7 4 g 98.4 [degF] 77 /min 95 % 95 % 132 mm[Hg] 84 mm[Hg] Dorothy Waldrop RN [facility] [employer] [facility] 4 11:35:14 Date Recorded Body height Body mass index (BMI) Body weight Body temperature Heart rate Oxygen saturation Oxygen saturation in Arterial blood by Pulse oximetry Systolic blood pressure Diastolic blood pressure Provider Name and Address Organization Details Last Updated DateTime 4 171.45 cm 24.7 kg/m2 20478.7 8 g 97.1 [degF] 84 /min 92 % 92 % 162 mm[Hg] 96 mm[Hg] Dorothy Waldrop RN [facility] [employer] [facility] 4 15:08:19 Date Recorded Body height Body mass index (BMI) Body weight Body temperature Heart rate Oxygen saturation Oxygen saturation in Arterial blood by Pulse oximetry Systolic blood pressure Diastolic blood pressure Provider Name and Address Organization Details Last Updated DateTime 5 171.45 cm 25.5 kg/m2 57152.7 4 g 95.5 [degF] 82 /min 98 % 98 % 120 mm[Hg] 64 mm[Hg] Marty Cope RN [facility] [employer] [facility] 5 12:09:32 Social History Question Answer Notes LastModified by Organizat ion Details LastModified Time Tobacco Smoking Status Current Every Day Smoker Not Available [employer] 11/09/2022 16:14:19 What Is Your Level Of Alcohol Consumption? None [id number] Information not available 11/09/2022 Do You Wear A Helmet When Biking? Yes MIGRATION.[id number] 7128 Information not available 11/09/2022 What Is Your Level Of Caffeine Consumption? Heavy MIGRATION.193478 2592 Information not available 11/09/2022 In The 14 Days Before Symptom Onset, Have You Had Close Contact With A Person Who Is Under Investigation For COVID-19 While That Person Was Ill? No MIGRATION.775051 5146 Information not available 11/09/2022 What Type Of Diet Are You Following? REGULAR MIGRATION.289862 4640 Information not available 11/09/2022 What Is The Highest Grade Or Level Of School You Have Completed Or The Highest Degree You Have Received? [id number] MIGRATION.142241 5530 Information not available 11/09/2022 What Is Your Occupation? UNEMPLOYED MIGRATION.167994 5795 Information not available 11/09/2022 Have There Been Any Changes To Your Family Or Social Situation? No MIGRATION.[id number] 1772 Information not available 11/09/2022 Are There Any Guns Present In Your Home? No MIGRATION.420635 9103 Information not available 11/09/2022 Do You Use Insect Repellent Routinely? No MIGRATION.261185 8334 Information not available 11/09/2022 What Is Your Current Pack Years? 20-29packyears MIGRATION.352549 3407 Information not available 11/09/2022 Do You Have Any Pets? No MIGRATION.475266 7217 Information not available 11/09/2022 What Is Your Relationship Status? MIGRATION.448359 2311 Information not available 11/09/2022 Do You Use Your Seat Belt Or Car Seat Routinely? Yes MIGRATION.982897 2697 Information not available 11/09/2022 Do You Have Smoke And Carbon Monoxide Detectors In Your Home? Yes MIGRATION.825859 8916 Information not available 11/09/2022 At What Age Did You Start Smoking Tobacco? 15 MIGRATION.280205 5621 Information not available 11/09/2022 Are You Passively Exposed To Smoke? No MIGRATION.033977 9823 Information not available 11/09/2022 Are There Any Smokers In Your House? No MIGRATION.892434 9196 Information not available 11/09/2022 How Much Tobacco Do You Smoke? 0.25 PPD MIGRATION.792813 5985 Information not available 11/09/2022 Do You Participate In Social Media? No MIGRATION.898083 0539 Information not available 11/09/2022 Do You Feel Stressed (tense, Restless, Nervous, Or Anxious, Or Unable To Sleep At Night)? [id number] MIGRATION.582879 9168 Information not available 11/09/2022 Do You Use Any Illicit Or Recreational Drugs? No MIGRATION.373110 4989 Information not available 11/09/2022 Do You Use Sunscreen Routinely? Yes MIGRATION.346147 3396 Information not available 11/09/2022 Has Tobacco Cessation Counseling Been Provided? No MIGRATION.754786 8946 Information not available 11/09/2022 How Many Years Have You Smoked Tobacco? 45 MIGRATION.240918 7485 Information not available 11/09/2022 Are You Currently In School? No MIGRATION.051738 6677 Information not available 11/09/2022 Do You Have Any Dietary Restrictions? No MIGRATION.085611 6805 Information not available 11/09/2022 Do You Or Have You Ever Used Any Other Forms Of Tobacco Or Nicotine? No MIGRATION.849621 4997 Information not available 11/09/2022 Sex: Unknown Functional Status Question Answer Note LastModified by Organizat ion Details LastModified Time What is your exercise level? Moderate [id number] Information not available 11/09/2022 Mental Status None recorded. Family History Relationship Description Onset Age of this Age Resolved Age Notes LastModified by Organization Details LastModified Time Father No current problems or disability [email or web address] Not available 12/2022 12:09:29 Mother No current problems or disability [email or web address] Not available 12/2022 12:09:29 Medical History No medical history recorded. Immunizations Vaccine Type Date Status Note Provider Nam e and Address Organization Details Recorded Time Influenza, split virus, quadrivalent, PF 05/22/2023 completed Marty Cope RN [facility], [place] [employer] 05/22/2023 12:40:57 COVID-19, mRNA, LNP-S, PF, 30 mcg/0.3 mL dose 12/27/2020 completed Not Available [employer] 16:18:10 COVID-19, mRNA, LNP-S, PF, 100 mcg/0.5mL dose or 50 mcg/0.25mL dose 11/30/2020 completed Not Available [facility] 3 16:18:10 Influenza, split virus, quadrivalent, PF 07/27/2021 completed Not Available [facility] 3 16:18:11 Influenza, split virus, quadrivalent, PF 07/11/2019 completed Not Available [facility] 3 16:18:11 Tdap 05/15/2018 completed Not Available [facility] 11/09/2022 16:18:11 Influenza, split virus, quadrivalent, PF 06/29/2022 completed Not Available [facility] 3 16:18:11 Influenza, split virus, quadrivalent, PF 06/11/2020 completed Not Available [facility] 3 16:18:11 Past Encounters Encounter ID Performer Location Encounter Start Date Encounter Closed Date Diagnosis/Indication Diagnosis SNOMED-CT Code Diagnosis ICD10 Code Diagnosis Note [id number] [facility] [place] [address] [place] [address] 12/15/2020 00:00:00 12/30/2020 18:11:23 [id number] [facility] [place] [address] [place] [address] 01/12/2021 00:00:00 01/12/2021 11:08:35 [id number] [facility] [place] [address] [place] [address] 03/29/2021 00:00:00 03/29/2021 17:29:03 [id number] [facility] [place] [address] [place] [address] 04/27/2021 00:00:00 04/27/2021 12:38:15 [id number] [facility] [place] [address] [place] [address] 07/27/2021 00:00:00 07/28/2021 08:34:04 [id number] [facility] [place] [address] [place] [address] 10/19/2021 00:00:00 10/19/2021 11:45:49 [id number] [facility] [place] [address] [place] [address] 11/17/2021 00:00:00 11/17/2021 11:37:02 [id number] [facility] [place] [address] [place] [address] 12/15/2021 00:00:00 12/15/2021 15:16:24 [id number] [facility] [place] [address] [place] [address] 01/13/2022 00:00:00 01/13/2022 15:52:29 [id number] [facility] [place] [address] [place] [address] 04/11/2022 00:00:00 04/11/2022 11:59:54 [id number] [facility] [place] [address] [place] [address] 04/27/2022 00:00:00 04/27/2022 12:22:17 [id number] [facility] [place] [address] [place] [address] 06/29/2022 00:00:00 06/29/2022 10:47:27 [id number] [facility] [place] [address] [place] [address] 07/27/2022 00:00:00 07/27/2022 08:18:48 [id number] [facility] [place] [address] [place] [address] 08/25/2022 00:00:00 09/09/2022 09:53:50 [id number] Shanae Jung MD [facility] [place] [address] [place] [address] 01/12/2023 12:02:47 01/12/2023 12:36:00 Degeneration of lumbar intervertebral disc 12967165 M51.36 Depressive disorder 3548 9007 F32.A Hyperlipidemia 34618703 E78.5 Z79.899 Hypertensive disorder 38 862350 I10 Hyperglycemia 08130554 R 73.9 Screening for malignant neoplasm of prostate 398585348 Z12.5 [id number] Shanae Jung MD [facility] [address] [facility] [address] [place] [address] 05/22/2023 11:59:29 05/22/2023 12:42:17 Administration of influenza vaccine 97090857 Z23 Prostate s pecific antigen above reference range 229978107 R97.20 mildly abnormal 01/31, repeat lab in 3 months Hyperlipidemia 18094204 E78.5 Z79.899 lab wasn't processed by labrepeat at next lab draw Depressive disorder 3548 1537 F32.A stablecont inue fluoxetine and rexultif/u in 3 months or sooner if needed [id number] Shanae Jung MD [facility] Primary Care [facility] [address] [facility] [address] [place] [address] 12/11/2023 09:12:57 12/11/2023 09:46:16 Gracia's esophagus 192916101 K22.70 Will re-refer to Guero restart PPI, encouraged him to take it daily as prescribed Degenerati on of lumbar intervertebral disc 92451904 M51.36 stablerefi ll given Depressive disorder 8 7 F32.A stablecont inue fluoxetine and rexulti [id number] Yaya Woodall, PIG FURNACE OPERATOR-C [facility] Primary [facility] [address] [facility] 140 [place] [address] 02/13/2024 11:14:18 02/13/2024 12:07:11 Gracia's esophagus 805278689 K22.70 -pantopraz ole has helped with the symptoms-n o refills needed-has not f/u with GI, appt to be made Degenerati on of lumbar intervertebral disc 67979276 M51.36 -continues oxycodone, has been out for about 1 week-pain management referral given-meds to be refilled after review Long-term drug therapy 775834906 Z79.098 [id number] OZ Sahu-Constanza [facility] Primary [facility] [address] [facility] [address] [place] [address] 06/06/2024 15:01:51 06/06/2024 15:34:53 Hyperpigmentation of skin 44798957 L81.9 hyperpigme nted lesion noted to noted to LFA, irregular borders, slightly raisedtria l triamcinol one [id number] GER Duran [facility] [address] [facility] [address] [place] [address] 09/23/2024 11:58:45 09/23/2024 12:18:41 Adult health examination 980027184 Z00.00 Discussed medication compliance and routine follow up.Discuss ed healthy diet and routine exercise.Jonny carloswed vaccine records and made recommenda tions as needed.Enc ouraged annual eye and dental exams, as well as twice yearly dental cleanings. Will check screening labs as listed below. 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 Screening for cardiovascular system disease 546319004 Z13.6 Diabetes m ellitus screening 062549533 Z13.1 Screening for malignant neoplasm of prostate 480822186 Z12.5 Screening for malignant neoplasm of colon 555875694 Z12.11 Health Concerns Section Related Observation LastModified by Organization Detai ls LastModified Time None Recorded Concern Status LastModified by Organization Details LastModified Time None Recorded Advance Directives Directive None Recorded Payers Encounter Date Sequence Insurance Name Policy Number Policy Dougherty Covered Member ID Dougherty Member ID Guarantor Name 05/22/2023 1 [place] Day [id number] Brnadon W Day 12/11/2023 1 [place] Day [id number] Brandon W Day 02/13/2024 1 [place] Day [id number] Brandon W Day 06/06/2024 1 [place] [id number] Brandon Joel 09/23/2024 1 [place] [id number] 9 Brandon Notes Date Note Type Note Provider Name and Address Organization Details Recorded Time 05/22/2023 text/html here for f/u, feeling well, mood is in good control. no selling/lending/sh aring pain meds, they are helping him have improved quality of life. Shanae Jung MD [address] [employer], [place], [address], [employer] 05/22/2023 12:39:42 12/11/2023 text/html here for f/u, feeling well, mood is in good control. no selling/lending/sh aring pain meds, they are helping him have improved quality of life. Mood is doing well on rexulti 2 mg daily and fluoxetine 80 mg daily. He is very pleased with how he feels. No si/hi. He is having GERD, has h/o barretts and is not on PPI. His voice is hoarse at times. Shanae Jung MD [address], [employer], [place], [address], [employer] 12/11/2023 09:46:57 02/13/2024 text/html pt is here for f/u Yaya singh PIG FURNACE OPERATOR-C [address], [employer], [place], [address], [employer] 02/13/2024 11:57:13 06/06/2024 text/html pt is here for skin lesion Yaya Woodall PIG FURNACE OPERATOR-C [address], [employer], [place], [address], [employer] 06/06/2024 16:16:00 09/23/2024 text/html Patient is a 63 year old male that presents to the office for Medicare Wellness. Patient reports he is doing well on current medications and has no concerns at this time. labs-ordered AndersonPSA-ordere dColonoscopy-UTDFl r-wcvvjgsPzcft-DML Tdap- UTD (2018)Best-brandin rePneumonia-aware Urszula Mcnulty, PIG FURNACE OPERATOR-C [address] [facility], [facility] [address], [place], [address], [facility] 09/23/2024 12:26:59
[2024-11-27 23:44] LABS: Glucose Point of Care 132 mg/dl (65-105)
--- NOTE | 2024-11-28 | ECG_ITS ---
Test Date: 2024-11-28 00:08:17 Measurements Intervals [place] Rate: 68 P: 61 MI: 172 QRS: 62 QRSD: 109 T: 54 QT: 440 QTc: 469 Interpretive Statements SINUS RHYTHM No previous ECG available for comparison Electronically Signed On 11-28-2024 11:56:10 CDT by Darrion Armstrong M.D.
[2024-11-28 00:04] LABS: Estimated Glomerular Filt Rate > 60
[2024-11-28 00:12] LABS: Glucose Point of Care 133 mg/dl (65-105)
[2024-11-28 00:20] VITALS: BP 173/72; PULSE 66; PULSE 67; RESP 14; TEMP 36.4; O2SAT 100
--- OUTSIDE RECORDS SUMMARY | 2024-11-28 00:23 | XMS_ITS | Clinical Summary ---
Author Organization [facility] Address [address] [place] [address] Care Team Providers Care Science And Operations Officer Name Role Phone Unavailable Primary Care Provider Unavailabl e Source Comments [facility],non-owned Affiliates and Associated Physician Practices is amultiple site organization consisting of ambulatory clinics and hospital sitesin [place], [place], [place] and [place]. This disclosure is being madepursuant to the Care Everywhere program and may not contain all information available regarding this patient. Last updated 18.[employer] Allergies Active Allergy Reactions Criticality Noted Date [...]
--- OUTSIDE RECORDS SUMMARY | 2024-11-28 00:23 | XMS_ITS | Clinical Summary ---
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 Gender Identity Not on file Sexual Orientation [...] Tdap) 05/15/2028 Medical Devices Implanted Type Area Java Software Device Identifier Shelf Expiration Date Model / Serial / Lot Kit Assemly Penile Impl 91-9480sc - [id number] Implanted:Qty: 1 on 02/22/2017 by Margot Wright MD at [facility] Other N/A: Scrotum COLOPLAST [id number] 10/27/2021 91-9480SC / / [id number] Kit Assemly Penile Impl 91-9480sc - [id number] Implanted:Qty: 1 on 03/19/2018 by Abel Merida MD at [facility] Other N/A: Penis COLOPLAST UROLOGY CARE 12/03/2022 91-9480SC / / Description:Both Coloplast p enile components are processed on requisition [id number] Kit Assemly Penile Impl 91-9480sc - [id number] Implanted:Qty: 1 on 07/06/2018 by Aebl Merida MD at [facility] Other N/A: Groin COLOPLAST UROLOGY CARE 02/22/2023 91-9480SC / / [id number] Description:REQUISITION $ [id number]. Kit Assemly Penile Impl 91-9480sc - [id number] Implanted:Qty: 1 on 05/10/2019 by Abel Merida MD at [facility] Other N/A: Penis COLOPLAST UROLOGY CARE 12/21/2023 91-9480SC / / [id number] Touch Scrotal Zero Degree Angle Cylinder Set With Pump Implanted:Qty: 1 on 02/22/2017 by Margot Wright MD at [facility] Penile Bilateral: Penis COLOPLAST [id number] 12/28/2020 [id number] / / [id number] Description:All Coloplast pe nile components are processed on requisition,[id number]. Weiner Titan Cohagen Leav 125cc [id number] - [id number] Implanted:Qty: 1 on 03/19/2018 by Abel Merida MD at [facility] Penile N/A: Penis COLOPLAST UROLOGY CARE 06/29/2022 [id number] / / [id number] Description:REQUISITION# [id number] Titan Touch Pump Implanted:Qty: 1 on 05/10/2019 by Abel Merida MD at [facility] Penile N/A: Penis COLOPLAST 09/28/2023 [id number] / / [id number] Description:REF: [id number] BOTH COLOPLAST COMPONETS ON REQUISITION # [id number] Heath Right Leg Spinal Stimulator Explanted Type Area Java Software Device Identifier Shelf Expiration Date Model / Serial / Lot Weiner Titan Cohagen Leav 125cc [id number] - [id number] Implanted:Qty: 1 on 02/22/2017 by Margot Wright MD at [facility] Explanted:Qty: 1 on 03/19/2018 by Abel Merida MD at [facility] Penile N/A: Scrotum COLOPLAST [id number] 10/03/2021 [id number] / / [id number] Description:Weiner remove d on left Penile Cylinder And Pump Explanted:Qty: 1 on 02/22/2017 by Margot Wright MD at [facility] N/A: Penis Ams Explanted:Qty: 1 on 03/19/2018 by Abel Merida MD at [facility] Right: Penis [employer] Description:unknown date of implantation or further information. Weiner removed on right Insurance MEDICARE PART A AND B RX [employer] Medicare Part D Advance Directives For more information, please contact: [phone] * Full Code (Latest Code Status on [...] 9:10 AM 04/12/2017 3:54 PM Care Teams Carrier Packer Relationship Specialty Start Date End Date [facility], External Provider [address] [place] [address] PCP - General 02/16/17
--- OUTSIDE RECORDS SUMMARY | 2024-11-28 00:23 | XMS_ITS | Clinical Summary ---
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
[2024-11-28 00:34] LABS: Ethanol < 10 mg/dL (<10)
[2024-11-28 00:35] LABS: Alanine Aminotransferase 39 U/L (6-50); Albumin Level 3.8 g/dL (3.5-5.1); Alkaline Phosphatase 120 U/L (38-126); Anion Gap 8 mmol/L (4-12); Aspartate Amino Transferase 52 U/L (17-59); Bilirubin,Total 0.6 mg/dL (0.2-1.3); Blood Urea Nitrogen 9 mg/dL (9-20); Calcium 9.1 mg/dL (8.4-10.2); Carbon Dioxide 28 mmol/L (22-30); Chloride 97 mmol/L (98-107); Estimated Glomerular Filt Rate > 60; Glucose 134 mg/dL (65-110); Lactic Acid Reflex 2.1 mmol/L (0.7-2.0); Lipase 117 U/L (23-300); Magnesium 1.7 mg/dL (1.6-2.3); Potassium 2.9 mmol/L (3.4-5.0); Prothrombin Time 13.2 Seconds (11.1-14.7); Sodium 133 mmol/L (137-145)
[2024-11-28 00:36] LABS: Partial Thromboplastin Time 25.8 Seconds (22.3-36.8)
[2024-11-28 00:45] LABS: Basophils Percent Auto 0.3 % (0.2-1.2); Eosinophils Absolute Auto 0.1 K/mm3 (0-0.3); Eosinophils Percent Auto 0.6 % (0-4.4); Hematocrit 40.7 % (42.0-52.0); Hemoglobin 13.7 g/dL (14.0-18.0); Immature Granulocyte Absolute 0.22 K/mm3 (0.00-0.031); Immature Granulocyte Percent A 1.9 % (0-0.5); Lymphocytes Absolute Auto 1.22 K/mm3 (0.9-3.2); Lymphocytes Percent Auto 10.4 % (18.3-44.2); Mean Corpuscular HGB Conc 33.7 g/dl (32-36); Mean Corpuscular Volume 92.1 fl (80-100); Mean Platelet Volume 10.5 fl (7.4-10.4); Monocytes Absolute Auto 0.7 K/mm3 (0.1-0.6); Monocytes Percent Auto 6.3 % (2.6-8.5); Neutrophils Absolute Auto 9.5 K/mm3 (1.3-6.7); Neutrophils Percent Auto 80.5 % (45.5-73.1); Platelet Count Result 199 k/mm3 (150-375); Red Blood Count 4.42 M/mm3 (4.6-6.20); Red Cell Distribution Width 12.9 % (11.5-14.5); White Blood Count 11.7 K/mm3 (4.5-10.0)
[2024-11-28] MEDS: SODIUM CHLORIDE 0.9% IV 1,000 ML 999 ML IV CONT ×2 (00:45→02:00)
[2024-11-28 00:46] LABS: NT Pro B Type Natriuretic Pept 74 pg/mL (19.9-100); Troponin I < 0.012 ng/mL (0.000-0.034)
--- NOTE | 2024-11-28 00:47 | ED_ITS ---
HPI - General Adult General Chief complaint: Neuro Symptoms/Deficit Stated complaint: dizziness, numbness, vomiting, diarrhea Time Seen by Provider: 11/27/24 23:42 History of Present Illness HPI narrative: Patient's 64-year-old gentleman presents emergency department with chief complaint of dizziness and double vision. Patient reports that he laid down at 8:00 p.m. and then woke up just prior to arrival. Patient states that he woke up feeling as though the room was spinning reported that he started having double vision the patient reports no prior history of stroke reports that he had no weakness in his arms or legs denies difficulty with speech the patient had nausea vomiting and diarrhea with these episodes as well S Related Data Allergies Allergy/AdvReac Type Severity Reaction Status Date / Time codeine AdvReac Unknown Vomiting Verified 11/27/24 23:38 Review of Systems 2 Review of Systems: A 10 system review of systems was completed on the patient and is negative except for what is stated in the HPI. Nursing and ancillary documentation was reviewed. PMF Family History Family History Mother Depression Other Family history of cardiovascular disease Social History Social History Smoking end date: 09/11/10 Alcohol intake: current Exam 2 Narrative: GENERAL: Well-appearing, well-nourished, and in no acute distress. HEAD: Normocephalic, atraumatic. EYES: PERRLA and EOMI. ENT: Nares clear, no rhinorrhea or epistaxis. Mucous membranes moist. NECK: Supple. CHEST: Clear to auscultation. No respiratory distress. HEART: Regular rate and rhythm. No murmur heard. Normal peripheral pulses. ABDOMEN: Soft, nontender, nondistended, normal active bowel sounds. EXTREMITIES: Normal range of motion. No edema. SKIN: Warm, dry, no rash. NEURO: No focal deficits. Alert and oriented x3. PSYCH: Normal mood and affect. Course Vital Signs Vital signs: Vital Signs Temperature 36.4 C 11/28/24 00:20 Pulse Rate 66 11/28/24 00:20 Respiratory Rate 14 11/28/24 00:20 Blood Pressure 173/72 H 11/28/24 00:20 Pulse Oximetry 100 11/28/24 00:20 Temperature 36.4 C 11/28/24 00:20 Pulse Rate 68 11/28/24 01:54 Respiratory Rate 14 11/28/24 00:20 Blood Pressure 173/72 H 11/28/24 00:20 Pulse Oximetry 100 11/28/24 00:20 Medical Decision Making MDM Narrative Medical decision making narrative: Differential diagnosis includes CVA, large vessel occlusion, vertigo, posterior circulation CVA Upon arrival emergency department patient was out of the 3 hour window for thrombolytics and was approaching the end point of the for 1/[address] head showed no acute abnormality CT angiography of the head and neck showed evidence of a carotid potential thrombus versus is free-floating plaque The patient has an NIH stroke scale of 2 At this time the patient is not a candidate for acute thrombolytics therapy but due to the possible thrombus patient will be given aspirin in the emergency department at this time heparin will be held. the case was discussed with [facility] and was accepted by Dr. Ruelas in the emergency department after neurology recommended the patient be transferred to the emergency department Vital Signs Vital Signs: Vital Signs Temperature 36.4 C 11/28/24 00:20 Pulse Rate 66 11/28/24 00:20 Respiratory Rate 14 11/28/24 00:20 Blood Pressure 173/72 H 11/28/24 00:20 Pulse Oximetry 100 11/28/24 00:20 Temperature 36.4 C 11/28/24 00:20 Pulse Rate 68 11/28/24 01:54 Respiratory Rate 14 11/28/24 00:20 Blood Pressure 173/72 H 11/28/24 00:20 Pulse Oximetry 100 11/28/24 00:20 Lab Data 11/28/24 00:05 11/28/24 00:05 Labs: Lab Results 11/27/24 11/27/24 11/28/24 Range/Units 23:42 23:52 00:05 WBC 11.7 H (4.5-10.0) K/mm3 RBC 4.42 L (4.6-6.20) M/mm3 Hgb 13.7 L (14.0-18.0) g/dL Hct 40.7 L (42.0-52.0) % MCV 92.1 (80-100) fl MCH 31.0 (26-34) pg MCHC 33.7 (32-36) g/dl RDW 12.9 (11.5-14.5) % Plt Count 199 (150-375) k/mm3 MPV 10.5 H (7.4-10.4) fl Immature Gran % (Auto) 1.9 H (0-0.5) % Neut % (Auto) 80.5 H (45.5-73.1) % Lymph % (Auto) 10.4 L (18.3-44.2) % Greer % (Auto) 6.3 (2.6-8.5) % Eos % (Auto) 0.6 (0-4.4) % Baso % (Auto) 0.3 (0.2-1.2) % Lymph # (Auto) 1.22 (0.9-3.2) K/mm3 Greer # (Auto) 0.7 H (0.1-0.6) K/mm3 Eos # (Auto) 0.1 (0-0.3) K/mm3 Baso # (Auto) 0.0 (0.0-0.1) K/mm3 Abs Immat Gran (auto) 0.22 H (0.00-0.031) K/mm3 Absolute Neuts (auto) 9.5 H (1.3-6.7) K/mm3 Absolute Nucleated RBC 0.000 (0.0-0.012) K/mm3 Nucleated RBC % 0.0 (0.0-0.2) % PT 13.2 (11.1-14.7) Seconds INR 1.0 APTT 25.8 (22.3-36.8) Seconds Sodium 133 L (137-145) mmol/L Potassium 2.9 L (3.4-5.0) mmol/L Chloride 97 L (98-107) mmol/L Carbon Dioxide 28 (22-30) mmol/L Anion Gap 8 (4-12) mmol/L BUN 9 (9-20) mg/dL Creatinine 0.90 0.80 (0.8-1.5) mg/dL Estim Creat Clear Calc Not Reportable Not Reportable Estimated GFR > 60 > 60 (59 - ) Glucose 134 H (65-110) mg/dL POC Capillary Glucose 132 H (65-105) mg/dl Lactic Acid 2.1 H (0.7-2.0) mmol/L Calcium 9.1 (8.4-10.2) mg/dL Magnesium 1.7 (1.6-2.3) mg/dL Total Bilirubin 0.6 (0.2-1.3) mg/dL AST 52 (17-59) U/L ALT 39 (6-50) U/L Alkaline Phosphatase 120 (38-126) U/L Troponin I < 0.012 (0.000-0.034) ng/mL NT-Pro-B Natriuret Pep 74 (19.9-100) pg/mL Total Protein 7.0 (6.3-8.2) g/dL Albumin 3.8 (3.5-5.1) g/dL Lipase 117 (23-300) U/L Procalcitonin 0.2 ng/mL Ethyl Alcohol < 10 (<10) mg/dL 11/28/24 Range/Units 00:10 WBC (4.5-10.0) K/mm3 RBC (4.6-6.20) M/mm3 Hgb (14.0-18.0) g/dL Hct (42.0-52.0) % MCV (80-100) fl MCH (26-34) pg MCHC (32-36) g/dl RDW (11.5-14.5) % Plt Count (150-375) k/mm3 MPV (7.4-10.4) fl Immature Gran % (Auto) (0-0.5) % Neut % (Auto) (45.5-73.1) % Lymph % (Auto) (18.3-44.2) % Greer % (Auto) (2.6-8.5) % Eos % (Auto) (0-4.4) % Baso % (Auto) (0.2-1.2) % Lymph # (Auto) (0.9-3.2) K/mm3 Greer # (Auto) (0.1-0.6) K/mm3 Eos # (Auto) (0-0.3) K/mm3 Baso # (Auto) (0.0-0.1) K/mm3 Abs Immat Gran (auto) (0.00-0.031) K/mm3 Absolute Neuts (auto) (1.3-6.7) K/mm3 Absolute Nucleated RBC (0.0-0.012) K/mm3 Nucleated RBC % (0.0-0.2) % PT (11.1-14.7) Seconds INR APTT (22.3-36.8) Seconds Sodium (137-145) mmol/L Potassium (3.4-5.0) mmol/L Chloride (98-107) mmol/L Carbon Dioxide (22-30) mmol/L Anion Gap (4-12) mmol/L BUN (9-20) mg/dL Creatinine (0.8-1.5) mg/dL Estim Creat Clear Calc Estimated GFR (59 - ) Glucose (65-110) mg/dL POC Capillary Glucose 133 H (65-105) mg/dl Lactic Acid (0.7-2.0) mmol/L Calcium (8.4-10.2) mg/dL Magnesium (1.6-2.3) mg/dL Total Bilirubin (0.2-1.3) mg/dL AST (17-59) U/L ALT (6-50) U/L Alkaline Phosphatase (38-126) U/L Troponin I (0.000-0.034) ng/mL NT-Pro-B Natriuret Pep (19.9-100) pg/mL Total Protein (6.3-8.2) g/dL Albumin (3.5-5.1) g/dL Lipase (23-300) U/L Procalcitonin ng/mL Ethyl Alcohol (<10) mg/dL Critical Care Time Critical Care Time Critical Care Time: Yes Total Critical Care Time: 35 Discharge Plan Discharge Clinical Impression: Cerebrovascular accident, Carotid thrombosis, right Patient Disposition: Acute Care Hospital Condition: Stable Patient Language: Tajik Follow-up/Referrals: [place],Urszula Matias NP [Primary Care Provider] - Time of Disposition: 01:40 Quality Stroke Date of last known normal: 11/28/24 Time of last known normal: 20:00
[2024-11-28] MEDS: PROCHLORPERAZINE EDISYLATE 10 MG/2 ML VIAL IV PUSH (00:54)
[2024-11-28 01:11] LABS: Procalcitonin 0.2 ng/mL
--- NOTE | 2024-11-28 01:53 | PC.NURSE ---
Report called to Brittanie RILEY @[facility]
[2024-11-28 01:54] VITALS: PULSE 68
[2024-11-28] MEDS: ASPIRIN 81 MG CHEWABLE TABLET 324 MG PO (01:59)
[2024-11-28 02:20] LABS: Reflex Lactic Acid Yes or No Add Lactic
[2024-11-28 02:25] VITALS: BP 121/70; PULSE 69; RESP 14; O2SAT 100
== END 2024-11-28 02:25 | disposition short-term general hospital (02) ==
PROVIDERS: Emergency Provider Emergency Medicine; PCP Nurse Practitioner Family
DX: I63.9 Cerebral infarction, unspecified (principal); I65.21 Occlusion and stenosis of right carotid artery; R29.702 NIHSS score 2
CPT/HCPCS: 36415; 70450; 70496; 70498; 71045; 80053; 82077; 82948; 83605; 83690; 83735; 83880; 84145; 84484; 85025; 85610; 85730; 93005; 96361; 96374; 99285; A9270; J0780; J7030; Q9967